=== PATIENT | male | born 1965 | race American Indian/Alaskan Native ===

== ENCOUNTER 2018-01-18 21:34 | Emergency (ER) | payer OTHER ==
[2018-01-18] MEDS ORDERED: NACL 0.9% 1000 ML 1,000 ML IV ONE (21:52)
[2018-01-18 22:55] LABS: Alanine Aminotransferase 61 units/L (7-56); Albumin 4.8 g/dL (3.9-5); BUN/Creatinine Ratio 18; Blood Urea Nitrogen 14 mg/dL (9-20); Calcium 9.7 mg/dL (8.4-10.2); Hemolysis Index 0; Lipase 26 units/L (13-60)
[2018-01-18 22:56] LABS: Basophils # (Auto) 0.1 K/mm3 (0.0-0.1); Basophils % (Auto) 0.4 % (0.0-1.8); Eosinophils # (Auto) 0.1 K/mm3 (0.0-0.4); Eosinophils % (Auto) 0.3 % (0.0-4.3); Hematocrit 43.9 % (35.5-45.6); Hemoglobin 15.4 gm/dl (11.8-15.2); Lymphocytes # (Auto) 2.8 K/mm3 (1.2-5.4); Lymphocytes % (Auto) 15.7 % (13.4-35.0); Mean Corpuscular HGB Conc 35 % (32-34); Mean Corpuscular Hemoglobin 30 pg (28-32); Mean Corpuscular Volume 85 fl (84-94); Monocytes # (Auto) 0.7 K/mm3 (0.0-0.8); Monocytes % (Auto) 3.9 % (0.0-7.3); Platelet Count 241 K/mm3 (140-440); Red Blood Count 5.16 M/mm3 (3.65-5.03); Red Cell Distribution Width 13.8 % (13.2-15.2)
[2018-01-18] MEDS ORDERED: ZOFRAN ONE (23:14)
[2018-01-18] MEDS ORDERED: ZOFRAN IV ONE (23:19)
[2018-01-18] MEDS ORDERED: SUBLIMAZE IV ONE (23:57)
[2018-01-18] MEDS ORDERED: PEPCID IV ONE (23:58)
--- NOTE | 2018-01-19 00:06 | Emergency Department Report ---
HPI - General Chief Complaint: Abdominal Pain Time Seen by Provider: 01/18/18 23:50 - HPI HPI: Room 22 The patient is a 52-year-old male presenting with a chief complaint of abdominal pain nausea vomiting. The patient states his last meal consisted of pork rind from a bag at 16:00. Patient states he was in his usual state of health when he went to a restaurant. At 18:00 prior to eating any food from the restaurant the patient states he began to get nauseous and developed vomiting and diffuse sharp abdominal pain and diaphoresis. Patient denied ever having chest pain. Patient states he had diarrhea. Patient denies any history of fever or unexplained weight loss. Patient denies any other forms of pain. Patient denies recent antibiotic use. Patient gives his pain score of 8/10 Location: Gastrointestinal system Duration: [See above] Quality: Sharp Severity: 8/10 Modifying factors: [see above] Context: [see above] Mode of transportation: [not driving] ED Past Medical Hx - Past Medical History Hx Hypertension: Yes Additional medical history: Obstructive sleep apnea on CPAP - Surgical History Past Surgical History?: No Additional Surgical History: Left knee surgery - Family History Family history: no significant - Social History Smoking Status: Former Smoker (none since June 2017) Substance Use Type: Alcohol (3-6 twelve ounce beers daily), Marijuana - Medications Home Medications: Home Medications Medication Instructions Recorded Confirmed Last Taken Type Famotidine [Pepcid] 20 mg PO BID #20 tablet 01/19/18 Unknown Rx HYDROcodone/APAP 5-325 [[place] 1 - 2 each PO Q6HR PRN #14 tablet 01/19/18 Unknown Rx 5/325] Levofloxacin [Levaquin TAB] 500 mg PO QDAY #20 tablet 01/19/18 Unknown Rx Promethazine [Phenergan TAB] 25 mg PO Q6HR PRN #20 tab 01/19/18 Unknown Rx Promethazine [Phenergan] 25 mg RI Q6HR PRN #5 supp.rect 01/19/18 Unknown Rx ED Review of Systems ROS: Stated complaint: EMESIS Other details as noted in HPI Constitutional: diaphoresis. denies: fever Eyes: denies: eye pain ENT: denies: throat pain Cardiovascular: denies: chest pain Endocrine: denies: unexplained weight loss Gastrointestinal: abdominal pain, nausea, vomiting, diarrhea Genitourinary: denies: dysuria Musculoskeletal: denies: back pain Skin: denies: change in color Neurological: denies: headache Physical Exam - Physical Exam Vital Signs: Vital Signs 01/18/18 01/18/18 21:46 23:00 Temperature 98.5 F Pulse Rate 83 76 Respiratory 20 15 Rate Blood Pressure 167/100 162/99 O2 Sat by Pulse 99 100 Oximetry Physical Exam: GENERAL: The patient is well-developed well-nourished male lying on stretcher not appearing to be in acute distress. [] HEENT: Normocephalic. Atraumatic. Extraocular motions are intact. Patient has moist mucous membranes. NECK: Supple. Trachea midline CHEST/LUNGS: Clear to auscultation. There is no respiratory distress noted. HEART/CARDIOVASCULAR: Regular. There is no tachycardia. There is no gallop rub or murmur. ABDOMEN: Abdomen is soft, with tenderness to palpation diffusely in abdomen except for suprapubic region. Patient has normal bowel sounds. There is no abdominal distention. SKIN: There is no rash. There is no edema. There is no diaphoresis. NEURO: The patient is awake, alert, and oriented. The patient is cooperative. The patient has normal speech MUSCULOSKELETAL: There is no evidence of acute injury. ED Course Vital Signs 01/18/18 01/18/18 21:46 23:00 Temperature 98.5 F Pulse Rate 83 76 Respiratory 20 15 Rate Blood Pressure 167/100 162/99 O2 Sat by Pulse 99 100 Oximetry - Reevaluation(s) Reevaluation #1: 01/19/18 02:06 Patient tolerating po challenge. States he would like to go home ED Medical Decision Making - Lab Data Result diagrams: 01/18/18 22:15 01/18/18 22:15 - EKG Data -: EKG Interpreted by Me EKG shows normal: sinus rhythm Rate: normal - EKG Data When compared to previous EKG there are: previous EKG unavailable Interpretation: nonspecific ST-T wave don (T-wave inversion in lead 3), other ( PAC) - Radiology Data Radiology results: report reviewed (CT abdomen and pelvis), image reviewed (CT abdomen and pelvis) [facility] [address] [place] [address] Cat Scan Report Signed Patient: DREA PRO MR#: [id number] : 1965 Acct:[id number] Age/Sex: 52 / M ADM Date: 01/18/18 Loc: ED Attending Dr: Ordering Physician: MOHAN STEINER MD Date of Service: 01/19/18 Procedure(s): CT abdomen pelvis w con Accession Number(s): [id number] cc: MOHAN STEINER MD FINAL REPORT EXAM: CT ABDOMEN PELVIS W CON HISTORY: diffuse abdominal pain nausea vomiting TECHNIQUE: Routine axial imaging was obtained of the abdomen and pelvis following the intravenous injection of 100 cc of Omnipaque 300. Delayed imaging was obtained through the kidneys ureters and bladder. Sagittal and coronal reconstructions were reviewed. FINDINGS: The lung bases reveal mild dependent atelectatic changes in the right lower lobe. Pleural fluid is not seen. There is a small hiatal hernia. The liver is normal size and reveals diminished attenuation compatible with hepatic steatosis. The gallbladder, biliary tree, pancreas, spleen, and adrenal glands appear normal. The kidneys enhance normally. The abdominal aorta is normal in caliber. The vasculatures enhance normally. The bowel loops reveal multiple nondistended fluid-filled loops of small bowel. There is no transition point. The appendix is normal in configuration. There is no evidence of free fluid or adenopathy. In the pelvis the prostate gland and bladder appear normal. There is a small left inguinal hernia containing omental fat. The skeletal structures reveal arthritic changes involving the SI joints and in the lower lumbar spine. IMPRESSION: Multiple nondistended fluid-filled loops of small bowel as described. The findings may represent a nonspecific nonobstructive ileus versus enteritis. No evidence of bowel obstruction or appendicitis. Hepatic steatosis. Mild dependent atelectasis in the right lower lobe. Small hiatal hernia. 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 Transcribed By: RB Dictated By: LUZ ELENA SANTIAGO MD Electronically Authenticated By: LUZ ELENA SANTIAGO MD Signed Date/Time: 01/19/18117 DD/ 7 TD/TT: 01/19/18117 - Differential Diagnosis pancreatitis, gastritis, gastroenteritis, partial small bowel obstruction, Critical care attestation.: If time is entered above; I have spent that time in minutes in the direct care of this critically ill patient, excluding procedure time. ED Disposition Clinical Impression: Acute abdominal pain, Leukocytosis, Enteritis Disposition: - TO HOME OR SELFCARE Is pt being admited?: No Does the pt Need Aspirin: No Condition: Stable Instructions: Ileus (ED), Infectious Colitis (ED) Additional Instructions: Return to the emergency department immediately should you develop worsening symptoms, fever, inability to tolerate food or liquid or any other concerns. Prescriptions: Famotidine [Pepcid] 20 mg PO BID #20 tablet HYDROcodone/APAP 5-325 [[place] 5/325] 1 - 2 each PO Q6HR PRN #14 tablet PRN Reason: Pain Levofloxacin [Levaquin TAB] 500 mg PO QDAY #20 tablet Promethazine [Phenergan TAB] 25 mg PO Q6HR PRN #20 tab PRN Reason: Nausea Promethazine [Phenergan] 25 mg RI Q6HR PRN #5 supp.rect PRN Reason: Vomiting Referrals: PRIMARY CARE, [Primary Care Provider] - 3-5 Days KALLIE FOSTER MD [Staff Physician] - 2-3 Days (Dr. Foster is a provider network mgr. Please follow up with him for further evaluation) Time of Disposition: 02:14
[2018-01-19 00:13] VITALS: BP 123/78
[2018-01-19 00:29] LABS: Creatine Kinase MB 3.1 ng/mL (0.0-4.0)
[2018-01-19] MEDS ORDERED: ZOFRAN IV ONE (01:19)
--- NOTE | 2018-01-19 01:26 | Cat Scan Report ---
FINAL REPORT EXAM: CT ABDOMEN PELVIS W CON HISTORY: diffuse abdominal pain nausea vomiting TECHNIQUE: Routine axial imaging was obtained of the abdomen and pelvis following the intravenous injection of 100 cc of Omnipaque 300. Delayed imaging was obtained through the kidneys ureters and bladder. Sagittal and coronal reconstructions were reviewed. FINDINGS: The lung bases reveal mild dependent atelectatic changes in the right lower lobe. Pleural fluid is not seen. There is a small hiatal hernia. The liver is normal size and reveals diminished attenuation compatible with hepatic steatosis. The gallbladder, biliary tree, pancreas, spleen, and adrenal glands appear normal. The kidneys enhance normally. The abdominal aorta is normal in caliber. The vasculatures enhance normally. The bowel loops reveal multiple nondistended fluid-filled loops of small bowel. There is no transition point. The appendix is normal in configuration. There is no evidence of free fluid or adenopathy. In the pelvis the prostate gland and bladder appear normal. There is a small left inguinal hernia containing omental fat. The skeletal structures reveal arthritic changes involving the SI joints and in the lower lumbar spine. IMPRESSION: Multiple nondistended fluid-filled loops of small bowel as described. The findings may represent a nonspecific nonobstructive ileus versus enteritis. No evidence of bowel obstruction or appendicitis. Hepatic steatosis. Mild dependent atelectasis in the right lower lobe. Small hiatal hernia. 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
[2018-01-19] MEDS ORDERED: SUBLIMAZE IV ONE (01:35)
[2018-01-19] MEDS ORDERED: REGLAN IV PRN (01:50)
[2018-01-19 02:08] LABS: Bilirubin,Urine NEG (Negative); Blood,Urine NEG (Negative); Color,Urine Yellow (Yellow); Mucus,Urine FEW /HPF; Protein,Urine <15 mg/dL mg/dL (Negative); Urobilinogen,Urine < 2.0 mg/dL (<2.0)
== END 2018-01-19 02:34 | disposition home or self-care (01) ==
LOC: ED 21:34
DX: K52.9 Noninfective gastroenteritis and colitis, unspecified (principal); D72.829 Elevated white blood cell count, unspecified; I10 Essential (primary) hypertension; G47.33 Obstructive sleep apnea (adult) (pediatric); Z87.891 Personal history of nicotine dependence
CPT/HCPCS: 36415; 74177; 80053; 81001; 82550; 82553; 82962; 83690; 84484; 85025; 93005; 93010; 96361; 96374; 96375; 96376; 99284; J2405; J3010; J7030; Q9967